=== PATIENT | female | born 1995 | race Hispanic/Latino ===

== ENCOUNTER 2019-02-14 16:52 | Emergency (ER) | payer SELFPAY ==
--- NOTE | 2019-02-14 19:05 | RAD REPORT ---
EXAM DESCRIPTION: RAD - Nasal Bones - 02/14/2019 6:37 pm CLINICAL HISTORY: Nasal pain status post injury FINDINGS: Minimally displaced nasal bone fracture
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
== END 2019-02-14 20:00 | disposition home or self-care (01) ==
LOC: ER 16:52
DX: S02.2XXA Fracture of nasal bones, initial encounter for closed fracture (principal); W50.0XXA Accidental hit or strike by another person, initial encounter; Y93.89 Activity, other specified; Y92.9 Unspecified place or not applicable
CPT/HCPCS: 70160; 99283